=== PATIENT | female | born 1975 | race Caucasian/White ===

== ENCOUNTER 2019-05-21 00:07 | Emergency (ER) | payer SELFPAY ==
[~2019-05-21] VITALS: Ht 154.9 cm; Wt 72.6 kg
[2019-05-21 01:06] LABS: BASOPHIL % 0.5 % (0-2); RED CELL DISTRIBUTION WIDTH 11.9 % (11.5-14.5)
[2019-05-21 01:08] LABS: PLATELET COUNT 419 x10^3mcL (130-400)
[2019-05-21 01:22] LABS: CHLORIDE SERUM 102 mmol/L (98-107); CREATININE SERUM 0.9 mg/dL (0.6-1.0); GFR1 > 60 mL/min; GLUCOSE SERUM 107 mg/dL (74-106); POTASSIUM SERUM 3.4 mmol/L (3.5-5.1); SODIUM SERUM 138 mmol/L (136-145)
[2019-05-21 01:27] LABS: ALBUMIN 4.2 g/dL (3.4-5.0); ALKALINE PHOSPHATASE 84 U/L (46-116); ALT/SGPT 25 U/L (14-59); AST/SGOT 13 U/L (15-37); BILIRUBIN TOTAL 0.18 mg/dL (0.20-1.00); TOTAL PROTEIN, SERUM 7.4 g/dL (6.4-8.2)
[2019-05-21 02:17] VITALS: BP 138/93
== END 2019-05-21 02:17 | disposition home or self-care (01) ==
LOC: ED 00:07
DX: K21.9 Gastro-esophageal reflux disease without esophagitis (principal); R10.13 Epigastric pain
CPT/HCPCS: 36415